=== PATIENT | male | born 1990 | race African-American/Black ===

== ENCOUNTER 2023-12-28 04:26 | Inpatient (IN) | payer OTHER ==
[~2023-12-28] VITALS: Ht 180.3 cm; Wt 79.6 kg
[2023-12-28 05:15] VITALS: PULSE 50; RESP 14; O2SAT 98
[2023-12-28] MEDS: SODIUM CHLORIDE 0.9% 1,000 ML IV ONE ×3 (05:15→13:34)
[2023-12-28] MEDS: ONDANSETRON HCL 4 MG/2 ML VIAL IV ONE (07:04)
[2023-12-28] MEDS: TAMSULOSIN HYDROCHLORIDE 0.4 MG CAP PO ONE (07:04)
[2023-12-28] MEDS: KETOROLAC TROMETH 30 MG/ML 1ML VIAL IV ONE (07:05)
[2023-12-28 07:46] LABS: Urine Bacteria None Seen /hpf (None Seen)
[2023-12-28 07:51] LABS: Basophils # (auto) 0 10 ^3/uL (0-0.2); Basophils % (auto) 0.1 % (0.0-2.0); Eosinophils # (auto) 0 10 ^3/uL (0-0.8); Eosinophils % (auto) 0.1 % (0.0-7.0); Hematocrit 46.4 % (41.0-53.0); Hemoglobin 16.3 g/dL (13.5-17.5); Lymphocytes # (auto) 0.9 10 ^3/uL (0.4-5.4); Lymphocytes % (auto) 6.2 % (10.0-50.0); Mean Corpuscular Hemoglobin 33.1 pg (28.0-32.0); Mean Corpuscular Hgb Conc. 35.1 g/dL (32.0-36.0); Mean Corpuscular Volume 94.6 fL (80.0-100.0); Monocytes # (auto) 0.9 10 ^3/uL (0-1.3); Monocytes % (auto) 6.4 % (0.0-12.0); Neutrophils # (auto) 12.9 10 ^3/uL (1.6-8.6); Neutrophils % (auto) 87.2 % (37.0-80.0); Platelet Count (auto) 199 10^3/uL (140-450); Red Blood Cells 4.91 10^6/uL (4.5-5.90); Red Cell Distribution Width 12.6 % (11.8-14.3); White Blood Cell 14.8 10^3/uL (4.4-10.8)
[2023-12-28 07:54] LABS: Alanine Aminotransferase 27 U/L (7-40); Alkaline Phosphatase 70 U/L (46-116); Anion Gap 7 (5-15); Aspartate Aminotransferase 21 U/L (13-40); BUN/Creatinine Ratio 7.7 (10.0-20.0); Blood Urea Nitrogen 9 mg/dL (9-23); Calcium 9.9 mg/dL (8.7-10.4); Carbon Dioxide 21 mmol/L (20-30); Chloride 109 mmol/L (98-107); Glucose 102 mg/dL (74-106); Potassium 4.2 mmol/L (3.5-5.1); Sodium 137 mmol/L (136-145)
[2023-12-28 07:55] LABS: Albumin 4.5 g/dL (3.2-4.8); Bilirubin, Total 2.2 mg/dL (0.2-1.0); Total Protein 7.9 g/dL (5.7-8.2)
[2023-12-28 08:06] LABS: Urine Blood 3+ /uL (Negative); Urine Clarity Turbid (Clear); Urine Color Light-Orange (Yellow); Urine Mucus FEW (None Seen); Urine Protein, UAD 1+ (Negative); Urine Specific Gravity 1.025 (1.001-1.035); Urine Urobilinogen 3 mg/dL (Negative); Urine WBC 11 /hpf (0 - 3)
[2023-12-28 10:31] LABS: Lipase 27 U/L (12-53)
[2023-12-28] MEDS: SODIUM CHLORIDE 0.9% 1,000 ML IV SCH (13:34)
[2023-12-28 13:47] VITALS: PULSE 90; RESP 18
[2023-12-28] MEDS: MANNITOL FTV 25% 12.5 GM/50 ML 50 ML IV ONE (17:15)
[2023-12-28] MEDS: HYDROcodone-ACET 5/325MG TAB PO PRN (18:14)
[2023-12-28] MEDS: KETOROLAC TROMETH 30 MG/ML 1ML VIAL IV PRN (22:20)
[2023-12-29] VITALS (9 sets, daily range): BP systolic 115–133; BP diastolic 54–77; PULSE 44–62; RESP 16–19; TEMP 97.8–98.6; O2SAT 96–99
[2023-12-29 06:19] LABS: Basophils # (auto) 0 10 ^3/uL (0-0.2); Basophils % (auto) 0.4 % (0.0-2.0); Eosinophils # (auto) 0.1 10 ^3/uL (0-0.8); Eosinophils % (auto) 1.2 % (0.0-7.0); Hematocrit 39.1 % (41.0-53.0); Hemoglobin 13.5 g/dL (13.5-17.5); Lymphocytes # (auto) 2.3 10 ^3/uL (0.4-5.4); Lymphocytes % (auto) 33.7 % (10.0-50.0); Mean Corpuscular Hemoglobin 32.4 pg (28.0-32.0); Mean Corpuscular Hgb Conc. 34.4 g/dL (32.0-36.0); Mean Corpuscular Volume 94.1 fL (80.0-100.0); Monocytes % (auto) 14.8 % (0.0-12.0); Neutrophils # (auto) 3.4 10 ^3/uL (1.6-8.6); Neutrophils % (auto) 49.9 % (37.0-80.0); Platelet Count (auto) 155 10^3/uL (140-450); Red Blood Cells 4.16 10^6/uL (4.5-5.90); Red Cell Distribution Width 12.9 % (11.8-14.3); White Blood Cell 6.9 10^3/uL (4.4-10.8)
[2023-12-29 06:32] LABS: Anion Gap 7 (5-15); Calcium 9.2 mg/dL (8.7-10.4); Carbon Dioxide 27 mmol/L (20-30); Chloride 106 mmol/L (98-107); Potassium 3.7 mmol/L (3.5-5.1); Sodium 140 mmol/L (136-145)
[2023-12-29 06:38] LABS: BUN/Creatinine Ratio 13.8 (10.0-20.0); Blood Urea Nitrogen 17 mg/dL (9-23); Glucose 103 mg/dL (74-106)
[2023-12-29] MEDS: cefTRIAXone 1GM/50ML D5W 50 ML IV SCH (08:39)
[2023-12-29] MEDS: ONDANSETRON HCL 4 MG/2 ML VIAL IV PRN (09:40)
[2023-12-29 11:16] LABS: Erythrocyte Sedimentation Rate 2 mm/hr (0-20)
[2023-12-29] MEDS: TAMSULOSIN HYDROCHLORIDE 0.4 MG CAP PO SCH (20:02)
[2023-12-30 00:56] VITALS: BP 117/74; PULSE 68; RESP 16; TEMP 97.9; O2SAT 97
[2023-12-30 05:00] VITALS: BP 140/75; PULSE 47; RESP 16; TEMP 98.1; O2SAT 98
[2023-12-30 08:00] VITALS: PULSE 48
[2023-12-30] MEDS ORDERED: HYDR-4902 PO (10:34)
[2023-12-30] MEDS ORDERED: TAMS-35 PO (11:22)
== END 2023-12-30 11:43 | disposition home or self-care (01) | DRG 465 ==
LOC: EDUNIT# 04:26 → EDBD 04:26 → ER 04:26 → OVERFLOW 11:47 → TELE 14:05 → TELE-CENTR 12-29 03:19 → CENTRAL 12-29 05:49 → TELE-CENTR 12-29 19:33
PROVIDERS: ADMIT Registered Nurse General Practice; ATTEND Internal Medicine
DX: N13.2 Hydronephrosis with renal and ureteral calculous obstruction (principal); D72.829 Elevated white blood cell count, unspecified; F17.210 Nicotine dependence, cigarettes, uncomplicated; F31.9 Bipolar disorder, unspecified; R31.9 Hematuria, unspecified; Z82.49 Family history of ischemic heart disease and other diseases of the circulatory system
CPT/HCPCS: 36415; 71045; 74176; 76775; 80048; 80053; 81001; 83690; 83880; 84484; 85025; 85652; 86141; 93005; 93306; 96365; 96375; 99291; G0378; J1885; J2405